=== PATIENT | male | born 1965 | race Caucasian/White ===

== ENCOUNTER 2017-03-21 22:30 | Inpatient (IN) | payer OTHER ==
[~2017-03-21] VITALS: Ht 167.6 cm; Wt 85.0 kg
[~2017-03-21 22:30] MED LIST: BEN50 PO; HC30CR25 TOP
[2017-03-21] MEDS ORDERED: morphine 4 MG/ML VIAL IV STA (22:42)
[2017-03-21] MEDS ORDERED: ONDANSETRON 4 MG INJ IV STA (22:42)
[2017-03-21] MEDS ORDERED: NITROGLYCERIN 2% 1 GM OINT PKT TD STA (22:42)
--- NOTE | 2017-03-21 23:07 | RADRPT ---
PROCEDURE: XR Chest. CLINICAL INDICATION: Chest pain. TECHNIQUE: PA and Lateral views of the chest were obtained. COMPARISON: None. FINDINGS: Cardiomegaly. The lungs are clear. No signs of pleural fluid or pneumothorax are seen. The osseous s tructures and soft tissues are unremarkable. IMPRESSION: No evidence for active cardiopulmonary disease. RPTAT: [facility] Physician Lior Date Time Electronically viewed and signed by Physician Lior on 03/21/2017 23:06 RS/
[2017-03-21 23:20] LABS: BASOPHIL # 0.1 10^3/ul (0.0-0.1); BASOPHILS % 0.6 % (0.0-2.0); EOSINOPHILS # 0.2 10^3/ul (0.0-0.5); EOSINOPHILS % 1.9 % (0.0-7.0); HEMATOCRIT 44.3 % (42.0-52.0); HEMOGLOBIN 15.1 g/dl (14.0-18.0); LYMPHOCYTES # 3.9 10^3/ul (0.8-2.9); LYMPHOCYTES % 32.2 % (15.0-51.0); MEAN CORPUSCULAR HEMOGLOBIN 29.8 pg (29.0-33.0); MEAN CORPUSCULAR HGB CONC 34.1 g/dl (32.0-37.0); MEAN CORPUSCULAR VOLUME 87.5 fl (82.0-101.0); MEAN PLATELET VOLUME 10.2 fl (7.4-10.4); MONOCYTE # 0.8 10^3/ul (0.3-0.9); MONOCYTES % 6.6 % (0.0-11.0); NEUTROPHIL # 7.1 10^3/ul (1.6-7.5); NEUTROPHILS % 58.4 % (39.0-77.0); PLATELET COUNT 356 10^3/UL (140-415); RED BLOOD COUNT 5.06 10^6/ul (4.70-6.10); RED CELL DISTRIBUTION WIDTH 12.5 % (11.5-14.5); WHITE BLOOD COUNT 12.2 10^3/ul (4.8-10.8)
[2017-03-21] MEDS ORDERED: LORA-444 PO (23:39)
[2017-03-21] MEDS ORDERED: GEMF600T60 PO (23:39)
[2017-03-21] MEDS ORDERED: RANI150T5 PO (23:39)
[2017-03-21] MEDS ORDERED: TRAM-40 PO (23:39)
[2017-03-21] MEDS ORDERED: ATEN-51 PO (23:39)
[2017-03-21] MEDS ORDERED: ATOR10TA65 PO (23:39)
[2017-03-21] MEDS ORDERED: OMEP20CA16 PO (23:39)
[2017-03-21] MEDS ORDERED: ASPI-664 PO (23:39)
[2017-03-21] MEDS ORDERED: OMEG1CAP2 PO (23:39)
[2017-03-21 23:50] LABS: INR 0.87; PROTIME 11.8 Sec (12.2-14.2); PT RATIO 0.9
[2017-03-21 23:51] LABS: PARTIAL THROMBOPLASTIN TIME 26.8 Sec (25.0-35.0)
[2017-03-21 23:59] LABS: ALANINE AMINOTRANSFERASE 46 IU/L (13-69); ALBUMIN 4.7 g/dl (3.3-4.9); ALBUMIN/GLOBULIN RATIO 1.42; ALKALINE PHOSPHATASE 95 IU/L (42-121); ANION GAP 23 (8-16); ASPARTATE AMINO TRANSFERASE 33 IU/L (15-46); BILIRUBIN,INDIRECT 0.1 mg/dl (0-1.1); BILIRUBIN,TOTAL 0.1 mg/dl (0.2-1.3); BLOOD UREA NITROGEN 9 mg/dl (7-20); CALCIUM 9.8 mg/dl (8.4-10.2); CARBON DIOXIDE 26 mmol/L (21-31); CHLORIDE 99 mmol/L (97-110); CREATININE 0.77 mg/dl (0.61-1.24); GLUCOSE 116 mg/dl (70-220); POTASSIUM 4.4 mmol/L (3.5-5.1); SODIUM 144 mmol/L (135-144)
[2017-03-22 00:10] LABS: B-TYPE NATRIURETIC PEPTIDE 19 PG/ML (0-125)
[2017-03-22 00:13] LABS: TROPONIN-I < 0.012 ng/ml (0.00-0.12)
--- NOTE | 2017-03-22 00:33 | ERA ---
ER Documentation Chief Complaint Date/Time DATE: 03/22/17 TIME: 00:32 Chief Complaint hypertension, vomiting , dizziness hx-htn taking bp meds HPI Is a 52-year-old male comes in with chest pain high blood pressure vomiting and dizziness. Patient has history of high blood pressures been compliant with medications been noted that the blood pressure was 200/120. Chest pain is sharp midsternal nonexertional positional no exacerbating limiting factors but is not reproducible to the touch. No other current complaints. ROS All systems reviewed and are negative except as per history of present illness. Medications Home Meds Reported Medications Aspirin* (Aspirin* EC) 81 Mg Tablet.dr, 81 MG PO DAILY, TAB 03/21/17 [place]-3 Acid Ethyl Esters (Lovaza) 1 Gm Capsule, 4 GM PO DAILY, CAP 03/21/17 Lorazepam* (Ativan*) 2 Mg Tablet, 2 MG PO BID Y for ANXIETY, #30 TAB 03/21/17 Omeprazole* (Omeprazole*) 20 Mg Capsule.dr, 20 MG PO DAILY, #30 CAP 03/21/17 Atorvastatin Calcium (Atorvastatin Calcium) 10 Mg Tablet, 10 MG PO QHS, #30 TAB 03/21/17 Tramadol Hcl* (Ultram*) 50 Mg Tablet, 50 MG PO Q6H Y for PAIN, TAB 03/21/17 Atenolol* (Atenolol*) 25 Mg Tablet, 25 MG PO DAILY, #30 TAB 03/21/17 Ranitidine Hcl* (Ranitidine Hcl*) 150 Mg Tablet, 150 MG PO, #30 TAB 03/21/17 Gemfibrozil* (Gemfibrozil*) 600 Mg Tablet, 600 MG PO BID, TAB 03/21/17 Discontinued Scripts Diphenhydramine Hcl* (Benadryl*) 50 Mg Cap, 50 MG PO Q6 Y for rash, #30 Prov:LUIS PINTO PA-C 03/25/15 Hydrocortisone* Topical (Hydrocortisone* Topical) 2.5%-28.3 Gm Cream..g., 1 APPLIC TOP BID, #1 TUB Prov:LUIS PINTO PA-C 03/25/15 Allergies Allergies: Coded Allergies: No Known Allergy (Unverified , 04/25/12) PMhx/Soc History of Surgery: Yes (BACK 08/2009; LEF 94) Anesthesia Reaction: No Hx Neurological Disorder: No Hx Respiratory Disorders: No Hx Cardiac Disorders: Yes (htn high cholesterol) Hx Psychiatric Problems: Yes (DEPRESSION anxiety) Hx Miscellaneous Medical Probl: Yes (gerd) Hx Alcohol Use: No Hx Substance Use: No Hx Tobacco Use: No Smoking Status: Never smoker Physical Exam Vitals Vital Signs Date Time Temp Pulse Resp B/P Pulse Ox O2 Delivery O2 Flow Rate FiO2 03/22/17 00:04 81 16 150/98 03/21/17 23:05 76 16 167/97 100 Room Air 03/21/17 22:34 97.3 98 20 173/93 99 Physical Exam Const: [] Head: Atraumatic Eyes: Normal Conjunctiva ENT: Normal External Ears, Nose and Mouth. Neck: Full range of motion..~ No meningismus. Resp: Clear to auscultation bilaterally Cardio: Regular rate and rhythm, no murmurs Abd: Soft, non tender, non distended. Normal bowel sounds Skin: No petechiae or rashes Back: No midline or flank tenderness Ext: No cyanosis, or edema Neur: Awake and alert Psych: Normal Mood and Affect Result Diagram: 03/21/17225803/21/172258 Results 24 hrs Laboratory Tests Test 03/21/17 22:59 White Blood Count 12.210^3/ul Red Blood Count 5.0610^6/ul Hemoglobin 15.1g/dl Hematocrit 44.3% Mean Corpuscular Volume 87.5fl Mean Corpuscular Hemoglobin 29.8pg Mean Corpuscular Hemoglobin Concent 34.1g/dl Red Cell Distribution Width 12.5% Platelet Count 07426^3/UL Mean Platelet Volume 10.2fl Neutrophils % 58.4% Lymphocytes % 32.2% Monocytes % 6.6% Eosinophils % 1.9% Basophils % 0.6% Nucleated Red Blood Cells % 0.0/100WBC Neutrophils # 7.110^3/ul Lymphocytes # 3.910^3/ul Monocytes # 0.810^3/ul Eosinophils # 0.210^3/ul Basophils # 0.110^3/ul Nucleated Red Blood Cells # 0.010^3/ul Prothrombin Time 11.8Sec Prothrombin Time Ratio 0.9 INR International Normalized Ratio 0.87 Activated Partial Thromboplast Time 26.8Sec Sodium Level 144mmol/L Potassium Level 4.4mmol/L Chloride Level 99mmol/L Carbon Dioxide Level 26mmol/L Anion Gap 23 Blood Urea Nitrogen 9mg/dl Creatinine 0.77mg/dl Glucose Level 116mg/dl Calcium Level 9.8mg/dl Total Bilirubin 0.1mg/dl Direct Bilirubin 0.00mg/dl Indirect Bilirubin 0.1mg/dl Aspartate Amino Transf (AST/SGOT) 33IU/L Alanine Aminotransferase (ALT/SGPT) 46IU/L Alkaline Phosphatase 95IU/L Troponin I < 0.012ng/ml B-Type Natriuretic Peptide 19PG/ML Total Protein 8.0g/dl Albumin 4.7g/dl Globulin 3.30g/dl Albumin/Globulin Ratio 1.42 Current Medications Medications (Trade) Dose Ordered Sig/Lexi Route PRN Reason Start Time Stop Time Status Last Admin Dose Admin Nitroglycerin (Nitroglycerin 2% Oint) 1 inch ONCE STAT TD 03/21/17 22:42 03/21/17 22:43 DC 03/21/17 23:09 Morphine Sulfate (morphine) 4 mg ONCE STAT IV 03/21/17 22:42 03/21/17 22:43 DC 03/21/17 23:09 Ondansetron HCl (Zofran Inj) 4 mg ONCE STAT IV 03/21/17 22:42 03/21/17 22:43 DC 03/21/17 23:08 Procedures/MDM EKG: Rate/Rhythm: Normal Sinus Rhythm QRS, ST, T-waves: No changes consistent w/ acute ischemia Impression: No evidence of ischemia or arrhythmia Chest X-ray 1V Interpreted by me: Soft Tissue: No acute abnormalities Bones: No acute abnormalities Mediastinum/Cardiac Silhouette/Lungs: No acute abnormalities Patient's symptoms are concerning for cardiac cause will require inpatient workup and continuous monitoring. Further w/u for ischemia, arrhythmia, PE or dissection will be deferred to the inpatient team. Accepting Care Team: Current data and ongoing care discussed. Time: 12:35 AM Primary Provider: Dr. Manriquez Consulting: [XOXOXO] Outstanding Data: none Critical Care: Time: 45 minutes Treatments/Evaluations: Close monitoring and treatment of unstable vital signs, cardiorespiratory, and neurologic status, while maintaining tight balance of fluid, respiratory, and cardiac interventions. This time is independent of any separate billable procedural time Departure Diagnosis: Primary Impression: Hypertensive crisis Condition: Serious FELIPE LUIS Mar 22, 2017 00:33
[2017-03-22 02:15] VITALS: Ht 167.6 cm; Wt 85.0 kg
[2017-03-22] MEDS ORDERED: ONDANSETRON 4 MG INJ IV PRN (02:30)
[2017-03-22] MEDS ORDERED: NITROGLYCERIN (SL) 0.4 MG TAB SL PRN (02:30)
[2017-03-22] MEDS ORDERED: DOCUSATE SODIUM 100 MG CAP PO PRN (02:30)
[2017-03-22] MEDS ORDERED: LORAZEPAM 0.5 MG TAB PO PRN (02:30)
[2017-03-22] MEDS ORDERED: ACETAMINOPHEN 325 MG TAB PO PRN (02:30)
[2017-03-22] MEDS ORDERED: MAGNESIUM HYDROXIDE 30ML CUP PO PRN (02:30)
[2017-03-22] MEDS ORDERED: LORAZEPAM 1 MG TAB PO PRN (02:30)
[2017-03-22] MEDS ORDERED: NACL 0.9% 3 ML SYG IV SCH (02:30)
[2017-03-22] MEDS ORDERED: BISACODYL 10 MG SUPP PR PRN (02:30)
[2017-03-22] MEDS ORDERED: morphine 2 MG INJ IV PRN (02:30)
[2017-03-22] MEDS ORDERED: traMADol 50 MG TAB PO PRN (02:30)
[2017-03-22] MEDS ORDERED: hydrALAzine 20 MG INJ IV PRN (03:00)
[2017-03-22] MEDS ORDERED: SOD CHLORIDE 0.9% 1,000 ML IV SCH (03:00)
[2017-03-22 04:11] VITALS: BP 135/84; RESP 19
--- NOTE | 2017-03-22 04:22 | RADRPT ---
PROCEDURE: CTA Chest CLINICAL INDICATION: Chest pain and suspected pulmonary embolus. TECHNIQUE: Thin section spiral CT images were obtained through the vasculature of the chest during administration of 100 cc of Omnipaque-300 contrast material. Multiplanar reconstructions and 3-D m aximum intensity projection reconstructed images were performed. The images were reviewed on a PACS workstation. The total exam CTDI equals 18.04 mGy, and the total exam DLP equals 680.79 mGy-cm. One or more of the following dose reduction techniques were used: automated exposure control, adjust ment of the mA and/or kV according to patient size, or use of iterative reconstruction technique. COMPARISON: Chest x-ray from 03/21 FINDINGS: Slight dependent atelectasis of the lungs is seen. No focal infiltrate or pleural effusion is seen. No pericardial effusion is seen. No hilar or mediastinal adenopathy is seen. There is no definite evidence for pulmonary embolus or aortic dissection. Normal heart size. Visualized portions of t he upper abdomen are unremarkable. There is mild degenerative change of the spine. IMPRESSION: No evidence for pulmonary embolus or aortic dissection. No definite acute disease. RPTAT: [facility] Physician Handy Date Time Electronically viewed and signed by Physician Handy on 03/22/2017 04:22 NADE[place]/
[2017-03-22 04:36] VITALS: PULSE 67
[2017-03-22 07:46] VITALS: BP 132/81; RESP 18
[2017-03-22 08:09] LABS: CHOL/HDL RATIO 3.8 RATIO
[2017-03-22 08:10] LABS: CREATINE KINASE 53 IU/L (23-200)
[2017-03-22 08:25] VITALS: PULSE 68
[2017-03-22 08:32] LABS: CK-MB 0.48 ng/ml (0.0-2.4); TROPONIN-I < 0.012 ng/ml (0.00-0.12)
[2017-03-22] MEDS ORDERED: ENOXAPARIN 40 MG/0.4 ML SYG SC SCH (09:00)
[2017-03-22] MEDS ORDERED: FAMOTIDINE 20 MG INJ IV SCH (09:00)
[2017-03-22] MEDS ORDERED: ATENOLOL 25 MG TAB PO SCH (09:00)
[2017-03-22] MEDS ORDERED: METOPROLOL 25 MG TAB PO SCH (09:00)
[2017-03-22] MEDS ORDERED: GEMFIBROZIL 600 MG TAB PO SCH (09:00)
[2017-03-22] MEDS ORDERED: ASPIRIN 81 MG TAB PO SCH (09:00)
[2017-03-22] MEDS ORDERED: LOSARTAN 25 MG TAB PO SCH (09:00)
--- NOTE | 2017-03-22 10:41 | HP ---
Date/Time of Note Date/Time of Note DATE: 03/22/17 TIME: 10:30 Assessment/Plan VTE Prophylaxis VTE Prophylaxis Intervention: LMWH Lines/Catheters IV Catheter Type (from [facility]): Peripheral IV Urinary Cath still in place: No Assessment/Plan Assessment/Plan 52-year-old male with: 1. Chest pain/pressure, cardiac enzymes negative 2 so far, EKG with no acute findings, 2D echocardiogram pending, discussed with Dr. Miguel Jones from cardiology patient to get stress test this morning. CT angiogram negative 2. Hyperlipidemia/hypertriglyceridemia: Continue outpatient medications including fenofibrate and statin 3. Hypertension: Medications have been adjusted to metoprolol and Cozaar for blood pressure control, discontinue atenolol for now. 4. GERD: Continue proton pump inhibitors 5. Chronic low back pain: Continue tramadol as needed Prophylaxis: Lovenox for DVT prophylaxis, Pepcid for GI prophylaxis Disposition: Stress test to be done this morning, follow-up with cardiology recommendation if stress test negative likely to be discharged home HPI/ROS Admit Date/Time Admit Date/Time Mar 22, 2017 at 00:19 Hx of Present Illness Chief complaint: Chest pain History of presenting illness: This is a 52-year-old male with hypertension, hypertriglyceridemia, prediabetes according to patient who presented to the emergency department with complaint of chest pressure, substernal that started yesterday. Patient reports that she started having chest pressure, substernal, left-sided, started yesterday, intermittently, with nausea, vomiting, diaphoresis overnight. Cardiac enzymes are negative, EKG does not show acute findings. Patient has a significant family history of cardiac disease or sudden cardiac of family members in their 50s. He reports that 2 years ago he had similar symptoms he went to [facility] and had a stress test done, from what he is reporting the stress test was negative. He has been compliant with his medications. Upon admission he was a significantly hypertensive systolic blood pressures in the 200 in the ER, it became controlled overnight, CT angiogram of the chest is negative for pulmonary embolus or aortic dissection. Cardiac enzymes are negative, echocardiogram and stress tests are ordered for this morning. Dr. Linn has been consulted for cardiology Patient afebrile, no coughing. ROS Constitutional: no complaints Respiratory: no complaints Cardiovascular: chest pain Gastrointestinal: no complaints Genitourinary: no complaints Musculoskeletal: no complaints Neurologic: no complaints Endocrine: no complaints PMH/Family/Social Past Medical History Prediabetes per patient's report Anxiety disorder Chronic back pain Medical History: GERD, high cholesterol, hypertension Past Surgical History Lumbar surgery 2 remotely Social History Alcohol Use: none Smoking Status: Never smoker Drug Use: none Exam/Review of Systems Vital Signs Vitals Vital Signs Date Time Temp Pulse Resp B/P Pulse Ox O2 Delivery O2 Flow Rate FiO2 03/22/17 08:25 68 03/22/17 07:46 97.9 18 132/81 96 03/21/17 23:05 Room Air Intake and Output 03/21/17 03/21/17 03/22/17 15:00 23:00 07:00 Intake Total 50 ml Balance 50 ml Exam Constitutional: alert, oriented, well developed Respiratory: clear to auscultation, normal air movement Cardiovascular: nl pulses, regular rate and rhythm Gastrointestinal: non-tender, soft Musculoskeletal: nl extremities to inspection Extremities: normal pulses, other (No edema, clubbing or cyanosis) Neurological: TUNNEL WORKER II-XII intact, nl mental status, nl speech, nl strength Labs Result Diagram: 03/21/17225803/21/172258 Medications Medications Current Medications Lorazepam (Ativan) 0.5 mg Q8H PRN PO ANXIETY Last administered on 03/22/17 03: 48; Admin Dose 0.5 MG; Start 03/22/17 at 02:30 Ondansetron HCl (Zofran Inj) 4 mg Q6H PRN IV NAUSEA AND/OR VOMITING; Start at 02:30 Aspirin (Aspirin) 81 mg DAILY PO Last administered on 03/22/17 09:37; Admin Dose 81 MG; Start 03/22/17 at 09:00 Nitroglycerin (Nitroglycerin (Sl Tab) 0.4 Mg) 1 tab Q5M PRN SL CHEST PAIN; Start 03/22/17 at 02:30 Acetaminophen (Tylenol Tab) 650 mg Q6H PRN PO PAIN LEVEL 1-3 OR FEVER Last administered on 03/22/17 03:17; Admin Dose 650 MG; Start 03/22/17 at 02:30 Morphine Sulfate (morphine) 2 mg Q4H PRN IV PAIN LEVEL 7-10; Start 03/22/17 at 02:30 Docusate Sodium (Colace) 100 mg Q12H PRN PO CONSTIPATION; Start 03/22/17 at 02: 30 Magnesium Hydroxide (Milk Of Mag) 30 ml DAILY PRN PO CONSTIPATION; Start at 02:30 Bisacodyl (Dulcolax Supp) 10 mg DAILY PRN [place] CONSTIPATION; Start 03/22/17 at 02 :30 Famotidine (Pepcid Iv) 20 mg Q12 IV Last administered on 03/22/17 09:39; Admin Dose 20 MG; Start 03/22/17 at 09:00 Enoxaparin Sodium (Lovenox) 40 mg DAILY SC Last administered on 03/22/17 09:44 ; Admin Dose 40 MG; Start 03/22/17 at 09:00 Atorvastatin Calcium (Lipitor) 10 mg QHS PO ; Start 03/22/17 at 21:00 Gemfibrozil (Lopid) 600 mg BID PO Last administered on 03/22/17 09:39; Admin Dose 600 MG; Start 03/22/17 at 09:00 Lorazepam (Ativan) 2 mg BID PRN PO ANXIETY; Start 03/22/17 at 02:30 Tramadol HCl 50 mg 50 mg Q6H PRN PO PAIN; Start 03/22/17 at 02:30 Sodium Chloride (NS) 1,000 ml @ 100 mls/hr Q10H IV Last administered on 03:22; Admin Dose 100 MLS/HR; Start 03/22/17 at 03:00 Metoprolol Tartrate (Lopressor) 25 mg BID PO Last administered on 03/22/17 09: 38; Admin Dose 25 MG; Start 03/22/17 at 09:00 Losartan Potassium (Cozaar) 25 mg BID PO Last administered on 03/22/17 09:39; Admin Dose 25 MG; Start 03/22/17 at 09:00 Hydralazine HCl (Apresoline) 10 mg Q8H PRN IV ELEVATED SYSTOLIC BP; Start 03/22 at 03:00 SARAH KAISER Mar 22, 2017 10:41
--- NOTE | 2017-03-22 13:10 | RADRPT ---
PROCEDURE: Lexiscan myocardial perfusion study CLINICAL INDICATION: 52 -year-old patient complaining of chest pain. TECHNIQUE: Lexiscan 0.4 mg intravenously separate acquisition gated myocardial perfusion SPECT usi ng Tc 99m Myoview 28.3 mCi intravenously at stress and Tc-99m Myoview, 10.2 mCi intravenously at res t was performed using the rest/stress sequence. Poststress Myoview SPECT images were obtained in th e supine position. COMPARISON: No prior studies. FINDINGS: Perfusion images reveal no evidence of perfusion defects. Lexiscan post stress gated SPECT images demonstrate no wall motion abnormalities. IMPRESSION: 1. Normal study with no evidence of perfusion defects or wall motion abnormalities. 2. The left ventricle ejection fraction at stress is 65%. A call report was made to Dr. Linn at 01:08 p.m. on March 22, 2017. RPTAT: HH .Brianda Gerard MD, Date Time Electronically viewed and signed by .Brianda Gerard MD, on 03/22/2017 13:09 .L/
--- NOTE | 2017-03-22 13:17 | CONS ---
Date/Time of Note Date/Time of Note DATE: 03/22/17 TIME: 13:12 Assessment/Plan Assessment/Plan Additional Assessment/Plan Chest pain Hypertension Diabetes Dyslipidemia Family history premature coronary artery disease -Serial cardiac enzymes remain negative, ECG without ischemic abnormalities. Currently asymptomatic. Patient planned for nuclear cardiac perfusion study. Consultation Date/Type/Reason Admit Date/Time Mar 22, 2017 at 00:19 Type of Consultation: cv Reason for Consultation Chest pain Hx of Present Illness This is a 52-year-old male with past medical history of hypertension, dyslipidemia, diabetes who presents with symptoms of chest pain. Symptoms began yesterday during an argument. Pain was mid chest and left-sided. He is not sure if there was associated shortness of breath. Because of the above, patient came to the emergency room for further evaluation and care. Patient otherwise denies exertional shortness of breath or chest pain prior to this episode. Denies any dizziness or lightheadedness or abdominal pain. 12 point review of systems was performed with all pertinent positives and negatives mentioned above and all else is negative Respiratory: no complaints Cardiovascular: chest pain Gastrointestinal: no complaints Genitourinary: no complaints Musculoskeletal: no complaints Neurologic: no complaints Past Medical History Medical History: GERD, high cholesterol, hypertension Past Surgical History Colon Procedures Family History Significant Family History: heart disease (Father in his 30s) Social History Alcohol Use: none Smoking Status: Never smoker Drug Use: none Exam/Review of Systems Vital Signs Vitals Vital Signs Date Time Temp Pulse Resp B/P Pulse Ox O2 Delivery O2 Flow Rate FiO2 03/22/17 08:25 68 03/22/17 07:46 97.9 18 132/81 96 03/21/17 23:05 Room Air Intake and Output 03/21/17 03/21/17 03/22/17 15:00 23:00 07:00 Intake Total 50 ml Balance 50 ml Exam No apparent distress Constitutional: alert, oriented, well developed Head: normocephalic Neck: supple Respiratory: clear to auscultation, normal air movement Cardiovascular: other (S1-S2 heard), regular rate and rhythm Gastrointestinal: bowel sounds, non-tender, other (No guarding), soft Extremities: other (No edema) Results Result Diagram: 03/21/17 2259 03/21/17 2259 Results 24 hrs Laboratory Tests Test 03/21/17 22:59 03/22/17 06:57 White Blood Count 12.2 H Red Blood Count 5.06 Hemoglobin 15.1 Hematocrit 44.3 Mean Corpuscular Volume 87.5 Mean Corpuscular Hemoglobin 29.8 Mean Corpuscular Hemoglobin Concent 34.1 Red Cell Distribution Width 12.5 Platelet Count 356 Mean Platelet Volume 10.2 Neutrophils % 58.4 Lymphocytes % 32.2 Monocytes % 6.6 Eosinophils % 1.9 Basophils % 0.6 Nucleated Red Blood Cells % 0.0 Neutrophils # 7.1 Lymphocytes # 3.9 H Monocytes # 0.8 Eosinophils # 0.2 Basophils # 0.1 Nucleated Red Blood Cells # 0.0 Prothrombin Time 11.8 L Prothrombin Time Ratio 0.9 INR International Normalized Ratio 0.87 Activated Partial Thromboplast Time 26.8 Sodium Level 144 Potassium Level 4.4 Chloride Level 99 Carbon Dioxide Level 26 Anion Gap 23 H Blood Urea Nitrogen 9 Creatinine 0.77 Glucose Level 116 Calcium Level 9.8 Total Bilirubin 0.1 L Direct Bilirubin 0.00 Indirect Bilirubin 0.1 Aspartate Amino Transf (AST/SGOT) 33 Alanine Aminotransferase (ALT/SGPT) 46 Alkaline Phosphatase 95 Troponin I < 0.012 < 0.012 B-Type Natriuretic Peptide 19 Total Protein 8.0 Albumin 4.7 Globulin 3.30 H Albumin/Globulin Ratio 1.42 Creatine Kinase 53 Creatine Kinase Index 0.9 Creatinine Kinase MB (Mass) 0.48 Triglycerides Level 156 H Cholesterol Level 175 LDL Cholesterol, Calculated 98 HDL Cholesterol 46 Cholesterol/HDL Ratio 3.8 Medications Medications Current Medications Lorazepam (Ativan) 0.5 mg Q8H PRN PO ANXIETY Last administered on 03/22/17 03: 48; Admin Dose 0.5 MG; Start 03/22/17 at 02:30 Ondansetron HCl (Zofran Inj) 4 mg Q6H PRN IV NAUSEA AND/OR VOMITING; Start at 02:30 Aspirin (Aspirin) 81 mg DAILY PO Last administered on 03/22/17 09:37; Admin Dose 81 MG; Start 03/22/17 at 09:00 Nitroglycerin (Nitroglycerin (Sl Tab) 0.4 Mg) 1 tab Q5M PRN SL CHEST PAIN; Start 03/22/17 at 02:30 Acetaminophen (Tylenol Tab) 650 mg Q6H PRN PO PAIN LEVEL 1-3 OR FEVER Last administered on 03/22/17 03:17; Admin Dose 650 MG; Start 03/22/17 at 02:30 Morphine Sulfate (morphine) 2 mg Q4H PRN IV PAIN LEVEL 7-10; Start 03/22/17 at 02:30 Docusate Sodium (Colace) 100 mg Q12H PRN PO CONSTIPATION; Start 03/22/17 at 02: 30 Magnesium Hydroxide (Milk Of Mag) 30 ml DAILY PRN PO CONSTIPATION; Start at 02:30 Bisacodyl (Dulcolax Supp) 10 mg DAILY PRN [place] CONSTIPATION; Start 03/22/17 at 02 :30 Famotidine (Pepcid Iv) 20 mg Q12 IV Last administered on 03/22/17 09:39; Admin Dose 20 MG; Start 03/22/17 at 09:00 Enoxaparin Sodium (Lovenox) 40 mg DAILY SC Last administered on 03/22/17 09:44 ; Admin Dose 40 MG; Start 03/22/17 at 09:00 Atorvastatin Calcium (Lipitor) 10 mg QHS PO ; Start 03/22/17 at 21:00 Gemfibrozil (Lopid) 600 mg BID PO Last administered on 03/22/17 09:39; Admin Dose 600 MG; Start 03/22/17 at 09:00 Lorazepam (Ativan) 2 mg BID PRN PO ANXIETY; Start 03/22/17 at 02:30 Tramadol HCl 50 mg 50 mg Q6H PRN PO PAIN; Start 03/22/17 at 02:30 Sodium Chloride (NS) 1,000 ml @ 100 mls/hr Q10H IV Last administered on 03:22; Admin Dose 100 MLS/HR; Start 03/22/17 at 03:00 Metoprolol Tartrate (Lopressor) 25 mg BID PO Last administered on 03/22/17 09: 38; Admin Dose 25 MG; Start 03/22/17 at 09:00 Losartan Potassium (Cozaar) 25 mg BID PO Last administered on 03/22/17 09:39; Admin Dose 25 MG; Start 03/22/17 at 09:00 Hydralazine HCl (Apresoline) 10 mg Q8H PRN IV ELEVATED SYSTOLIC BP; Start 03/22 at 03:00 Procedures Procedures ECG demonstrates sinus rhythm, normal QRS duration, no significant ischemic ST- T wave abnormalities Seven Linn DO Mar 22, 2017 13:17
[2017-03-22 13:31] VITALS: PULSE 69
--- NOTE | 2017-03-22 13:34 | PDOCDIS ---
Discharge Instructions CONDITION Patient Condition: Stable HOME CARE INSTRUCTIONS: Diet Instructions: Low Fat /Cholesterol ACTIVITY: Activity Restrictions: No Restrictions FOLLOW UP/APPOINTMENTS Follow-up Plan Follow-up with primary care physician in 1 week Follow-up with cardiology as needed as an outpatient SARAH KAISER Mar 22, 2017 13:34
[2017-03-22] MEDS ORDERED: LOSA25TA2 PO (13:35)
[2017-03-22 14:47] LABS: CREATINE KINASE 53 IU/L (23-200)
[2017-03-22 15:00] LABS: CK-MB 0.39 ng/ml (0.0-2.4); TROPONIN-I < 0.012 ng/ml (0.00-0.12)
--- NOTE | 2017-03-22 15:18 | RADRPT ---
Echocardiogram Report Patient Name: ZANDER GAMEZ Gender: Male Date: 1965 Study Date: 22-Mar-2017 Cask Maker: Mariaelena Hernandez [facility] Location: [id number] Ref. Physician: JI KAISER Quality: Good Procedures: Transthoracic echocardiogram with complete 2D, M-Mode, and doppler examination. Indications: Chest Pain. 2D/M Mode Doppler Measurement Value Normal Ranges Measurement Value Normal Ranges LVIDd 2D 4.6 3.5 - 5.6 cm AV Peak [place] 1.2 m/sec LVIDs 2D 2.8 2.1 - 4.1 cm AV Peak PG 6.0 mmHg LVPWd 2D 0.8 0.6 - 1.1 cm LVOT Peak [place] 0.9 m/sec IVSd 2D 0.8 0.6 - 1.1 cm LVOT Peak PG 3.5 mmHg AoR Diam 2D 2.7 2.0 - 3.7 cm MV E Peak [place] 0.7 m/sec EDV 2D 96.3 cm3 MV A Peak [place] 0.6 m/sec ESV 2D 20.8 cm3 MV E/A 1.3 LA Dimen 2D 3.3 2.3 - 4.0 cm MV Decel Time 194 msec MV Decel [place] 4 MV E/A 1.3 TR Peak [place] 1.8 m/sec TR Peak PG 13.6 mmHg RVSP 17.0 mmHg Findings Left Ventricle: Normal left ventricular systolic function. Normal left ventricular cavity size. Normal left ventricular wall thickness. Ejection fraction is visually estimated at 65 %. Tissue Doppler/Mitral Doppler indices are within normal limits. Right Ventricle: Normal right ventricular size. Normal right ventricular systolic function. Left Atrium: The left atrium is normal in size. Right Atrium: The right atrium is normal in size. Mitral Valve: Normal appearance and function of the mitral valve with trace physiologic regurgitation. Aortic Valve: Normal appearance of the aortic valve. No significant aortic stenosis or insufficiency. Tricuspid Valve: Normal appearance of the tricuspid valve. Estimated peak PA systolic pressure 17 mmHg. There is trace tricuspid regurgitation. Pulmonic Valve: Normal pulmonic valve appearance. Pericardium: Normal pericardium with no significant pericardial effusion. Aorta: Normal aortic root. IVC: Normal size and normal respiratory collapse consistent with normal right atrial pressure. Conclusions 1.Normal left ventricular systolic function. Normal left ventricular cavity size. Normal left ventricular wall thickness. Ejection fraction is visually estimated at 65 %. Tissue Doppler/Mitral Doppler indices are within normal limits. 2.Normal right ventricular size. Normal right ventricular systolic function. 3.The left atrium is normal in size. 4.The right atrium is normal in size. 5.No significant valvular stenosis or regurgitation seen. 6.Normal pericardium with no significant pericardial effusion. Electronically Signed By: Seven Linn 22-Mar-2017 15:17:04 -0700 Patient Name: ZANDER GAMEZ Study Date: 22-Mar-2017 [id number]
[2017-03-22 16:25] VITALS: PULSE 73
[2017-03-22] MEDS ORDERED: IOHEXOL 300MG/ML 150 ML BTL ONE (18:03)
[2017-03-22] MEDS ORDERED: SOD CHLORIDE 0.9% 100 ML ONE (18:03)
[2017-03-22] MEDS ORDERED: REGADENOSON 0.4 MG/5 ML SYG ONE (18:03)
[2017-03-22] MEDS ORDERED: ATORVASTATIN 10 MG TAB PO SCH (21:00)
--- NOTE | 2017-03-24 11:57 | EN ---
Date/Time of Note Date/Time of Note DATE: 03/24/17 TIME: 11:55 Event Note Cardiology Cardiology Event Note Lexiscan ECG report Date of procedure 03/22/2017 This is a 52-year-old male who presents with chest discomfort Baseline ECG sinus rhythm at 63 bpm, QRS 82 ms, no significant ischemic ST abnormality seen Lexiscan administered as per protocol Symptoms of fatigue which resolved Peak blood pressure 135/78 No significant ECG changes ECG interpretation is nonischemic The nuclear portion will be interpreted by our radiology colleagues Seven Linn DO Mar 24, 2017 11:57
== END 2017-03-22 16:35 | disposition home or self-care (01) | DRG 313 ==
LOC: E/R 22:30 → MS4 03-22 00:19
PROVIDERS: ADMIT Internal Medicine; ATTEND Internal Medicine
DX: R07.9 Chest pain, unspecified (principal); I10 Essential (primary) hypertension; I16.9 Hypertensive crisis, unspecified; E11.9 Type 2 diabetes mellitus without complications; K21.9 Gastro-esophageal reflux disease without esophagitis; F41.8 Other specified anxiety disorders; E78.5 Hyperlipidemia, unspecified; G89.29 Other chronic pain; M54.5 Low back pain; Z82.49 Family history of ischemic heart disease and other diseases of the circulatory system; Z91.14 Patient's other noncompliance with medication regimen
CPT/HCPCS: 36415; 71010; 71275; 78452; 80053; 80061; 82550; 82553; 83880; 84484; 85025; 85610; 85730; 93005; 93017; 93306; 96374; 96375; A9500; A9505; J1650; J2270; J2405; J2785; J7030; Q9967